=== PATIENT | female | born 1975 | race Caucasian/White ===

== ENCOUNTER 2020-11-16 09:09 | Emergency (ER) | payer OTHER ==
[~2020-11-16] VITALS: Ht 162.6 cm; Wt 92.3 kg
[2020-11-16] MEDS ORDERED: FLUO20CA20 PO (09:23)
[2020-11-16] MEDS ORDERED: FLINCHW14 PO (09:23)
[2020-11-16] MEDS ORDERED: ZINC1TAB2 PO (09:23)
[2020-11-16] MEDS ORDERED: methylPREDNISolone 125MG 2ML VIAL IV ONE (09:45)
[2020-11-16] MEDS ORDERED: NS 1,000 ML IV ONE (09:45)
[2020-11-16] MEDS ORDERED: FAMOTIDINE INJ 20MG/2ML VIAL (S0028 PER 1) IVP ONE (10:00)
[2020-11-16] MEDS ORDERED: diphenhydrAMINE 50MG/ML VIAL (J1200) IV ONE (10:00)
[2020-11-16 10:29] LABS: BASO % 0.2 % (0.0-1.0); EOS # 0.5 10^3/uL (0.0-0.5); EOS % 6.4 % (0.0-3.0); HEMOGLOBIN 13.4 g/dl (12.0-15.5); LYMPH % 11.9 % (24.0-44.0); MEAN CORPUSCULAR HEMOGLOBIN 28.7 pg (27.0-33.0); MEAN CORPUSCULAR HGB CONC 32.7 g/dl (32.0-36.5); MEAN CORPUSCULAR VOLUME 87.8 fl (80.0-96.0); MONO # 0.6 10^3/uL (0.0-0.8); MONO % 6.6 % (0.0-5.0); NEUTROPHILS # 6.1 10^3/uL (1.5-8.5); NEUTROPHILS % 73.9 % (36.0-66.0); PLATELET COUNT, AUTOMATED 276 10^3/uL (150-450); RED BLOOD COUNT 4.67 10^6/uL (4.00-5.40); WHITE BLOOD COUNT 8.3 10^3/uL (4.0-10.0)
[2020-11-16 10:42] LABS: ALBUMIN 3.3 GM/DL (3.2-5.2); ALT/SGPT 22 U/L (12-78); BILIRUBIN,DIRECT < 0.1 MG/DL (0.0-0.2); BILIRUBIN,TOTAL 0.3 MG/DL (0.2-1.0); BLOOD UREA NITROGEN 8 MG/DL (7-18); C REACTIVE PROTEIN QUANTITATIV 1.63 MG/DL (0.00-0.30); CALCIUM LEVEL 8.4 MG/DL (8.5-10.1); CARBON DIOXIDE LEVEL 25 MEQ/L (21-32); CHLORIDE LEVEL 104 MEQ/L (98-107); GLOMERULAR FILTRATION RATE > 60.0 (>58); GLUCOSE, FASTING 97 MG/DL (70-100); POTASSIUM SERUM 3.5 MEQ/L (3.5-5.1); SODIUM LEVEL 137 MEQ/L (136-145); TOTAL PROTEIN 6.7 GM/DL (6.4-8.2)
[2020-11-16 10:53] LABS: ERYTHROCYTE SEDIMENTATION RATE 31 mm/hr (0-20)
[2020-11-16 10:55] LABS: MONO REFLEX EBV COMP NEGATIVE (NEGATIVE); MONO SCRN NEGATIVE (NEGATIVE)
[2020-11-16 11:34] LABS: RSV AMPLIFICATION NEGATIVE (NEGATIVE)
[2020-11-16] MEDS ORDERED: hydrOXYzine 50 MG TAB PO STA (11:49)
[2020-11-16] MEDS ORDERED: HYDR-3363 PO (11:55)
[2020-11-16] MEDS ORDERED: PRED20TA PO (11:55)
[2020-11-16] MEDS ORDERED: CETI10CA2 PO (11:55)
[2020-11-16] MEDS ORDERED: TRIA1CR80 TOP (11:55)
[2020-11-16 13:30] VITALS: BP 135/70
[2020-11-17 13:07] LABS: EBV VIRAL CAPSID AG IgM <36.0 U/mL (0.0-35.9)
== END 2020-11-16 13:37 | disposition home or self-care (01) ==
LOC: EDSEX 09:09 → M ED 09:09
DX: R21 Rash and other nonspecific skin eruption (principal); T36.0X5A Adverse effect of penicillins, initial encounter; F41.9 Anxiety disorder, unspecified; F32.9 Major depressive disorder, single episode, unspecified; Z79.2 Long term (current) use of antibiotics; Z88.0 Allergy status to penicillin; Z88.2 Allergy status to sulfonamides; Z88.8 Allergy status to other drugs, medicaments and biological substances
CPT/HCPCS: 80048; 80076; 83605; 83735; 85025; 85652; 86063; 86140; 86308; 86664; 86665; 87631; 96361; 96374; 96375; 99283; J1200; J2930